=== PATIENT | female | born 1950 | race Caucasian/White ===

== ENCOUNTER 2024-02-20 05:46 | Emergency (ER) | payer OTHER, MEDICARE ==
[~2024-02-20] VITALS: Ht 160 cm; Wt 58.0 kg
[2024-02-20 05:57] VITALS: O2SAT 98
[2024-02-20] MEDS ORDERED: HYDR-4001 MT (08:43)
[2024-02-20 09:00] VITALS: TEMP 36.78072; O2SAT 99
[2024-02-20 09:03] VITALS: BP 157/73; PULSE 70; RESP 16
[2024-02-20] MEDS: HYDROCODONE/ACETAMINOPHEN 5/325MG TABLET PO STA (09:03)
== END 2024-02-20 09:00 | disposition home or self-care (01) ==
LOC: ER 05:46
DX: S01.81XA Laceration without foreign body of other part of head, initial encounter (principal); W06.XXXA Fall from bed, initial encounter; Z88.0 Allergy status to penicillin; Z98.890 Other specified postprocedural states; Z88.1 Allergy status to other antibiotic agents; Z88.8 Allergy status to other drugs, medicaments and biological substances; Y93.89 Activity, other specified; Y92.89 Other specified places as the place of occurrence of the external cause; Y99.8 Other external cause status
CPT/HCPCS: 12011; 99284